=== PATIENT | male | born 2000 | race Caucasian/White ===

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

== ENCOUNTER 2021-01-20 12:04 | Emergency (ER) | payer BC, SELFPAY ==
[2021-01-20 12:23] VITALS: BP 138/81; PULSE 81; RESP 20; TEMP 37.9; O2SAT 100
--- NOTE | 2021-01-20 13:00 | ED.DENTAL ---
HPI - Dental/Oral General Chief complaint: Dental/Oral Stated complaint: Mouth pain Source: patient and RN notes reviewed Limitations: no limitations History of Present Illness HPI Narrative: The patient, previously mostly healthy, presents with half week worsening of year long history of left dental pain. Patient states he had a traumatic fracture of the molar, over a year ago; he now has 1/2-week history of mild left facial swelling and tooth ache. No known fever, hoarseness, trismus; symptoms are mild worse eating Related Data Allergies Allergy/AdvReac Type Severity Reaction Status Date / Time No Known Allergies Allergy Verified 12/01/20 14:18 Review of Systems Review of Systems: General/Constitutional: No weight loss, REPORTS possible fever Eyes: N0: Redness,discharge Ears/Nose/Throat: No: Epistaxis,ear discharge Respiratory: Denies: Hemoptysis Gastrointestinal: No Vomiting, Bleeding-rectal Skin: No Lumps, eruption Neurologic: No Focal Weakness,Sz Hematologic: Denies: Petechiae/Purpura Psychiatric: No: Suicida ideationl All Other Systems: Reviewed and Negative [facility] Past Medical History Medical History (Updated 01/20/21 @ 14:07 by Dilan Gaspar MD) Chlamydia May 19, 2020 Surgical History Surgical History (Updated 12/01/20 @ 14:31 by NORM Contreras) History of hand surgery Repair of right index finger nailbed-12/13/2020 Family History Family History (Updated 12/01/20 @ 14:40 by NORM Contreras) Father Family history of diabetes mellitus in first degree relative Family history of heart disease in male family member before age 55 Diabetes mellitus Mother Asthma Social History Social History (Updated 12/01/20 @ 14:41 by NORM Contreras) Smoking status: Never smoker Tobacco type: cigarettes Second hand tobacco smoke exposure: No Alcohol intake: never Substance use: never Gender identity (if verbalized by the patient): Male Comments At time of signature, agree with nursing past medical, surgical, social and family history. There is no relevant family history pertinent to the presenting complaint Exam Narrative: General Appearance: Well appearing, , Conjunctiva clear Ears: External ear normal, Auditory canal normal Nose: Normal nose Mouth/Throat: Normal appearing (with mild left, upper jaw swelling), Normal lips, MM moist, Uvula midline (scattered dental caries and fillings,, with rare fracture) Neck: Supple, No adenopathy Respiratory: Airway patent, No respiratory distress, Musculoskeletal: Full ROM, Non tender, Normal strength; Warm, Dry, Normal color Neurological: A&O x3, Normal affect Course Vital Signs Vital signs: Vital Signs Temperature 100.3 F H 01/20/21 12:23 Pulse Rate 81 01/20/21 12:23 Respiratory Rate 20 01/20/21 12:23 Blood Pressure 138/81 01/20/21 12:23 Pulse Oximetry 100 01/20/21 12:23 Temperature 100.3 F H 01/20/21 12:23 Pulse Rate 81 01/20/21 12:23 Respiratory Rate 20 01/20/21 12:23 Blood Pressure 138/81 01/20/21 12:23 Pulse Oximetry 100 01/20/21 12:23 Discharge Plan Discharge Clinical Impression: Abscess, jaw Patient Disposition: Home, Self-Care Condition: Stable Instructions: Dental Abscess (ED) Prescriptions: New tramadol 50 mg tablet 50 - 75 mg PO Q6H PRN (Reason: pain) Qty: 20 RF: 0 lidocaine HCl [Lidocaine Viscous] 2 % solution 5 ml MUCOUS MEM QID PRN (Reason: pain) Qty: 100 RF: 0 amoxicillin-pot clavulanate [Augmentin] 500-125 mg tablet 1 tablet PO TID Qty: 20 RF: 0 No Action cyclobenzaprine 10 mg tablet 10 mg PO TID PRN (Reason: muscle spasm) Qty: 20 RF: 0 ketorolac 10 mg tablet 10 mg PO Q8H PRN (Reason: pain) 5 Days Qty: 15 RF: 0 ibuprofen 600 mg tablet 600 mg PO QID PRN (Reason: pain) Qty: 30 RF: 0 methylprednisolone 4 mg tablets,dose pack See Rx Instructions .ROUTE .COMPLEX Qty: 21 RF: 0 Foll
== END 2021-01-20 13:03 | disposition home or self-care (01) ==
PROVIDERS: Emergency Provider Emergency Medicine
DX: M27.2 Inflammatory conditions of jaws (principal)
CPT/HCPCS: 99213; G0463

== ENCOUNTER 2021-08-10 21:41 | Emergency (ER) | payer BC, SELFPAY ==
[2021-08-10 21:45] VITALS: BP 135/98; PULSE 70; RESP 18; TEMP 36.4; O2SAT 98
--- NOTE | 2021-08-10 22:01 | ED.HA ---
HPI - Headache General Chief Complaint: Headache Stated Complaint: migraine Source: patient and family History of Present Illness HPI Narrative: this is a 21-year-old gentleman that presents with some headache it is throbbing located behind his right eye has been going off and on for the last couple of weeks patient has tried [id number] preparations like Excedrin that has helped but this some has waxed and waned and presents with his girlfriend. Currently there is no nausea vomiting no fever chills no blurry vision no chest pain no shortness of breath. Patient states that these are his typical migraines. MD elicited complaint: headache and migraine Onset description: gradually Location: right and retro-orbital Severity: moderate Pain scale (0-10): 5 Quality & Timing: throbbing Related Data Allergies Allergy/AdvReac Type Severity Reaction Status Date / Time No Known Allergies Allergy Verified 08/10/21 21:55 Review of Systems Review of Systems: All systems reviewed & are unremarkable except as noted in HPI and below PMFSH Past Medical History Medical History Chlamydia May 19, 2020 Surgical History Surgical History History of hand surgery Repair of right index finger nailbed-12/13/2020 Family History Family History Father Family history of diabetes mellitus in first degree relative Family history of heart disease in male family member before age 55 Diabetes mellitus Mother Asthma Social History Social History Smoking status: Never smoker Tobacco type: cigarettes Second hand tobacco smoke exposure: No Alcohol intake: never Substance use: never Gender identity (if verbalized by the patient): Male Exam Const: General: no acute distress Orientation/consciousness: patient oriented x3 HENMT: Head: normal to inspection Eyes: Conjunctivae: conjunctivae normal Pupils: Equal, round and reactive pupils present Neck: Neck: normal visual inspection, no lymphadenopathy and no meningeal signs Chest: Chest palpation & inspection: normal inspection of the chest Resp: Effort & Inspection: normal respiratory effort Cardio: Rate: regular rate Rhythm: regular rhythm GI: GI Palp: Yes Soft to palpation Percussion: Yes normal to percussion Urinary Catheter: Urinary Catheter: patent and draining Back/Spine/Pelvis: Back: no CVA tenderness Skin: General skin exam: normal color Rashes: no rashes Neuro: General: patient oriented x3 and moves all extremities Extrem: General: normal to inspection, no pedal edema and edema Psych: Affect: normal affect Course Course Emergency Course: Patient states that his headache is about 5/10 with currently no nausea or vomiting declined any IV access for fluids are off IV pain medication. Will administer a dose of Toradol 10mg and advised patient to take medicine as prescribed. Critical Care Time Critical Care Time Critical Care Time: No Discharge Plan Discharge Clinical Impression: Migraine Qualifiers: Migraine type: ophthalmoplegic Intractability: not intractable Qualified Code(s): G43.B0 - Ophthalmoplegic migraine, not intractable Patient Disposition: Home, Self-Care Condition: Stable Instructions: Antibiotic Form, Migraine Headache (ED) Additional Instructions: Take medicine as prescribed and follow up with prior primary care physician if symptoms persist or worsen. Prescriptions: New tramadol [Ultram] 50 mg tablet 50 mg PO Q6H PRN (Reason: pain) Qty: 20 RF: 0 ondansetron 4 mg tablet,disintegrating 4 mg PO Q6H PRN (Reason: nausea and vomiting) Qty: 10 RF: 0 Follow-up/Referrals: UNKNOWN,DOCTOR [Primary Care Provider] - Time of Disposition: 22:05
[2021-08-10] MEDS: KETOROLAC 10 MG TABLET PO (22:06)
== END 2021-08-10 22:15 | disposition home or self-care (01) ==
PROVIDERS: Emergency Provider Emergency Medicine
DX: G43.B0 Ophthalmoplegic migraine, not intractable (principal)
CPT/HCPCS: 99283; A9270

== ENCOUNTER 2021-09-14 15:47 | Emergency (ER) | payer OTHER, BC, SELFPAY ==
--- NOTE | ~2021-09-14 | XR_ITS ---
EXAMINATION: XR finger 2nd LT min 2V INDICATION: Left second finger pain TECHNIQUE: Four views of the left second finger are obtained. COMPARISON: None available FINDINGS: Bone alignment is normal. There is no fracture. There is soft tissue swelling of the second finger. IMPRESSION: 1. Soft tissue swelling without acute osseous abnormality. Reviewed, dictated and finalized at location A.
--- NOTE | 2021-09-14 16:02 | ED.UPPEXIN ---
HPI - Extremity Injury (Upper) General Chief Complaint: Extremity Injury, Upper Stated Complaint: left hand index finger Time Seen by Provider: 09/14/21 16:03 Source: patient Mode of arrival: ambulatory Limitations: no limitations History of Present Illness HPI narrative: 21 y/o male presented for c/o left index finger injury while at work about 1 hour [employer]. States he smashed the finger in between a wrench and a piece of machinery. Endorses small lacerations to the knuckle with minimal bleeding. Reports minimal pain 2/10 to the site, pain worse with movement of the finger. Denies numbness, tingling or weakness. Tetanus utd per pt. Took ibuprofen for pain. Related Data Home Medications Medication Instructions Recorded Confirmed No Home Medications 09/14/21 09/14/21 Allergies Allergy/AdvReac Type Severity Reaction Status Date / Time No Known Allergies Allergy Verified 09/14/21 16:00 Review of Systems Review of Systems: CONSTITUTIONAL: Denies body aches, fever, chills EYES: Denies visual changes ENT: Denies rhinorrhea, congestion CARDIOVASCULAR: Denies chest pain, palpitations, or edema. RESPIRATORY: Denies cough or dyspnea. GASTROINTESTINAL: Denies abdominal pain, nausea, vomiting, or diarrhea. SKIN: Denies rash, itching, or wounds. MUSCULOSKELETAL: Reports left index finger injury NEUROLOGIC: Denies headache, numbness, tingling, or weakness. PSYCH: Denies depression or anxiety. All systems reviewed & are unremarkable except as noted in HPI and below PMFSH Past Medical History Medical History Chlamydia May 19, 2020 Surgical History Surgical History History of hand surgery Repair of right index finger nailbed-12/13/2020 Family History Family History Father Family history of diabetes mellitus in first degree relative Family history of heart disease in male family member before age 55 Diabetes mellitus Mother Asthma Social History Social History Smoking status: Never smoker Tobacco type: cigarettes Second hand tobacco smoke exposure: No Alcohol intake: never Substance use: never Gender identity (if verbalized by the patient): Male Comments At time of signature, I have reviewed and agree with nursing past medical, surgical, social and family history unless otherwise noted. Please see nursing chart for further information. There is no relevant family history pertinent to the presenting complaint Exam Narrative: GENERAL: Well-appearing no acute distress. HEAD: Normocephalic, atraumatic. EYES: conjunctivae clear NECK: Supple. CHEST: Speaks in full sentences. No respiratory distress. HEART: Regular rate and rhythm. Normal and equal peripheral pulses. EXTREMITIES: Left hand has normal strength and sensation, normal range of motion; endorses mild pain with movement at the left 2nd digit MCP. Tender with palpation to palmar surface of the Proximal phalanx, Mild swelling to to PIP with approx 0.4cm abrasion with no drainage, and approx 0.4 cm length laceration with flap to radial aspect of 2nd digit PIP. no bruising. No skin tenting or obvious deformity; alignment normal, pulse palpable and equal bilaterally, skin warm, dry, pink. Capillary refill less than 3 seconds. SKIN: Warm, dry, no rash. NEURO: Alert and oriented x3. PSYCH: Normal mood and affect Course Course Emergency Course: Patient is aware of diagnosis, understands and agrees to treatment plan. Anticipatory guidance given. Patient agrees to follow-up as directed and is aware of reasons to seek care at the emergency department. Portions of this record may have been created with voice recognition software Level of Care: Express Care Visit Vital Signs Vital signs: Reviewed MDM - Extremity Injur
[2021-09-14 16:06] VITALS: BP 132/75; PULSE 79; RESP 16; TEMP 36.6; O2SAT 98
--- NOTE | 2021-09-14 16:29 | PC.NURSE ---
after the left index finger was cleaned... the left index finger actually had an abrasion to the knuckle not a puncture wound and there was an avulsion to the knuckle with a flap in place on the outside of the left knuckle on the thumb side, there was no bleeding to these areas. 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
== END 2021-09-14 16:23 | disposition home or self-care (01) ==
PROVIDERS: Emergency Provider Nurse Practitioner Family
DX: S67.10XA Crushing injury of unspecified finger(s), initial encounter (principal); W31.9XXA Contact with unspecified machinery, initial encounter
CPT/HCPCS: 73140; 99213; G0463

== ENCOUNTER 2022-08-04 16:19 | Emergency (ER) | payer BC, SELFPAY ==
[2022-08-04 16:31] VITALS: BP 127/80; PULSE 92; RESP 16; TEMP 37; O2SAT 98
--- NOTE | 2022-08-04 16:31 | ED.URI ---
HPI - URI/Sore Throat General Chief Complaint: Upper Respiratory Infection Stated Complaint: VOMITING/CHILLS/FEVER/TIRED & BACK INJURY Time Seen by Provider: 08/04/22 16:40 Source: patient and RN notes reviewed Mode of arrival: ambulatory Limitations: no limitations History of Present Illness HPI Narrative: 22-year-old male presents with concern for nausea, fever, nasal congestion, fatigue, body aches, chills that started on Tuesday. He denies sore throat. He reports he has been taking Motrin with some relief. MD elicited complaint: fever Related Data Home Medications Medication Instructions Recorded Confirmed No Home Medications 09/14/21 08/04/22 Allergies Allergy/AdvReac Type Severity Reaction Status Date / Time No Known Allergies Allergy Verified 08/04/22 16:38 Review of Systems Review of Systems: CONSTITUTIONAL: Reports malaise, chills fever. EYES: Denies visual changes, redness, or discharge. ENT: Reports rhinorrhea, congestion. Denies sinus pain, otalgia and sore throat. CARDIOVASCULAR: Denies chest pain, palpitations, or edema. RESPIRATORY: Denies cough. Denies dyspnea. GASTROINTESTINAL: Denies abdominal pain, nausea, vomiting, diarrhea SKIN: Denies rash or itching. MUSCULOSKELETAL: Reports myalgia. NEUROLOGIC: Denies headache. All systems reviewed & are unremarkable except as noted in HPI and below PMFSH Past Medical History Medical History Chlamydia May 19, 2020 Surgical History Surgical History History of hand surgery Repair of right index finger nailbed-12/13/2020 Family History Family History Father Family history of diabetes mellitus in first degree relative Family history of heart disease in male family member before age 55 Diabetes mellitus Mother Asthma Social History Social History Smoking status: Never smoker Tobacco type: cigarettes Second hand tobacco smoke exposure: No Alcohol intake: never Substance use: never Living arrangements: with family Occupation/Education: occupation Gender identity (if verbalized by the patient): Male Comments At time of signature, agree with nursing past medical, surgical, social and family history. There is no relevant family history pertinent to the presenting complaint Exam Narrative: GENERAL: Nontoxic appearing and in no acute distress. HEAD: Normocephalic EYES: PERRLA, conjunctivae clear ENT: Nares clear, clear discharge. Mucous membranes moist. TM pearly veliz with sharp light reflex bilaterally; no tragal tenderness. Oropharynx not erythematous without lesions. Tonsils not enlarged and without exudate, no drooling, no hoarseness, no trismus, uvula midline. NECK: Supple. No lymphadenopathy CHEST: Clear to auscultation, breath sounds equal. No wheezing, rhonchi, rales, or stridor. No respiratory distress, speaks in full sentences. HEART: Regular rate and rhythm. No murmur heard. SKIN: Warm, dry, no rash. NEURO: Alert and oriented x3. PSYCH: Normal mood and affect Course Course Emergency Course: Patient is aware of diagnosis, understands and agrees to treatment plan. Anticipatory guidance given. Patient agrees to follow-up as directed and is aware of reasons to seek care at the emergency department. Portions of this record may have been created with voice recognition software Level of Care: Express Care Visit Vital Signs Vital signs: Reviewed. MDM - URI/Sore Throat MDM Narrative Medical decision making narrative: Differential diagnosis considered: Lewis virus, strep pharyngitis, allergic rhinitis, upper respiratory tract infection, sinusitis, rhinosinusitis, nasopharyngitis. viral pharyngitis, otitis media, otitis externa, pneumonia, bronchitis, viral cough syndrome, viral syndrome,
== END 2022-08-04 16:55 | disposition home or self-care (01) ==
PROVIDERS: Emergency Provider Nurse Practitioner; PCP Physician Assistant
DX: U07.1 COVID-19 (principal)
CPT/HCPCS: 87426; 87804; 99212; C9803; G0463